=== PATIENT | male | born 1985 | race Caucasian/White ===

== ENCOUNTER 2017-12-29 23:28 | Emergency (ER) | payer OTHER ==
[~2017-12-29] VITALS: Ht 167.6 cm; Wt 83.2 kg
[2017-12-29 23:30] VITALS: BP 170/119
[2017-12-29] MEDS ORDERED: LIDOCAINE-MPF 2% ,5ML ONE (23:55)
[2017-12-29] MEDS ORDERED: BUPIVACAINE 0.25% ONE (23:55)
[2017-12-30] MEDS ORDERED: BUPIVACAINE 0.25% INFIL ONE
[2017-12-30] MEDS ORDERED: LIDOCAINE-MPF 2% ,5ML SQ ONE
[2017-12-30] MEDS ORDERED: CEPHALEXIN 500 MG CAPSULE PO ONE (01:00)
[2017-12-30] MEDS ORDERED: CEPHALEXIN 500 MG CAPSULE ONE (01:12)
[2017-12-30] MEDS ORDERED: LIDOCAINE-MPF 2% ,5ML ONE (01:24)
[2017-12-30] MEDS ORDERED: BACITRACIN ZINC OINT 500U/GM, 0.9 GM ONE ×2 (02:01→02:02)
[2017-12-30] MEDS ORDERED: OXYcodone/APAP 5/325MG TABLET ONE (02:08)
[2017-12-30] MEDS ORDERED: OXYcodone/APAP 5/325MG TABLET PO ONE (02:30)
== END 2017-12-30 03:10 | disposition home or self-care (01) ==
LOC: ED 12-30 03:04
DX: S62.663A Nondisplaced fracture of distal phalanx of left middle finger, initial encounter for closed fracture (principal); S61.313A Laceration without foreign body of left middle finger with damage to nail, initial encounter; S61.315A Laceration without foreign body of left ring finger with damage to nail, initial encounter; I10 Essential (primary) hypertension; Z94.0 Kidney transplant status; W31.89XA Contact with other specified machinery, initial encounter; Y93.89 Activity, other specified; Y92.89 Other specified places as the place of occurrence of the external cause; Y99.0 Civilian activity done for income or pay
CPT/HCPCS: 11760; 73130; 99284; J3490